=== PATIENT | female | born 1995 | race Caucasian/White ===

== ENCOUNTER 2017-06-28 15:22 | Emergency (ER) | payer OTHER ==
[~2017-06-28] VITALS: Ht 157.5 cm; Wt 90.0 kg
[2017-06-28 15:23] VITALS: BP 110/77
[2017-06-28] MEDS ORDERED: METHOCARBAMOL 750 MG TABLET PO ONE (17:30)
[2017-06-28] MEDS ORDERED: KETOROLAC 30 MG/1 ML IM ONE (17:30)
[2017-06-28] MEDS ORDERED: METHOCARBAMOL 750 MG TABLET ONE (17:41)
[2017-06-28] MEDS ORDERED: KETOROLAC 30 MG/1 ML ONE (17:41)
== END 2017-06-28 18:07 | disposition home or self-care (01) ==
LOC: ED 17:50
DX: S39.012A Strain of muscle, fascia and tendon of lower back, initial encounter (principal); Z90.49 Acquired absence of other specified parts of digestive tract; X50.0XXA Overexertion from strenuous movement or load, initial encounter; Y93.89 Activity, other specified; Y99.8 Other external cause status; Y92.89 Other specified places as the place of occurrence of the external cause; Z87.891 Personal history of nicotine dependence
CPT/HCPCS: 72110; 99284